=== PATIENT | male | born 1955 | race Caucasian/White ===

== ENCOUNTER 2016-09-17 18:52 | Emergency (ER) | payer OTHER ==
[~2016-09-17] VITALS: Ht 175.3 cm; Wt 85.3 kg
[~2016-09-17 18:52] MED LIST: ADULT LOW DOSE81 M1 PO; ALPRAZOLAM0.25 MG PO; ASPIR-TRIN325 M1 PO; Coumadin,Jantoven PO; LANOXIN,DIGIT0.25 MG PO; NOHOMEMEDS; Pradaxa PO; Tylenol Regular Stre PO
[2016-09-17 18:58] VITALS: BP 108/71
[2016-09-17] MEDS ORDERED: POLYTRIM EYE DR10 ML LEFT EYE (19:57)
== END 2016-09-17 20:18 | disposition home or self-care (01) ==
LOC: EME 18:52
DX: B30.9 Viral conjunctivitis, unspecified (principal); Z79.01 Long term (current) use of anticoagulants; Z79.82 Long term (current) use of aspirin
CPT/HCPCS: 99281; 99284